=== PATIENT | female | born 1935 | race Caucasian/White ===

== ENCOUNTER → 2017-05-13 | Outpatient (CLI) | payer OTHER ==
[~2017-05-13] MED LIST: ACET-2158 GTB; ACET1TAB40 PO; AMLO-147 PO; ASPI-664 PO; ATOR10TA65; BENA1TAB3 PO; CARB200C5 PO; DOCU-144 PO; FER325 PO; IMO2 GTB; LEVO100T11 PO; METOPROLOL TARTRATE; MTF1000T PO
--- NOTE | 2017-05-13 20:40 | RADRPT ---
PROCEDURE: Right knee radiographs. CLINICAL INDICATION: Right knee pain. Postop. TECHNIQUE: Three views. Weight bearing. Frontal, lateral, and patellar view. COMPARISON: 10/03/2013. FINDINGS: There is no fracture or dislocation. The soft tissues are normal. 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 There is no lytic or blastic lesion. IMPRESSION: 1. Satisfactory postoperative appearance of the right knee. RPTAT: QQ .José Miguel Yousif MD, MD Date Time Electronically viewed and signed by .José Miguel Yousif MD, MD on 05/13/2017 20:40 .R/
--- NOTE | 2017-05-14 03:58 | HKNOTE ---
DATE OF SERVICE: 05/13/2017 CHIEF COMPLAINT: Left groin pain. HISTORY OF PRESENT ILLNESS: Ms. Burrows is an 81-year-old female complaining of pain in the left sophie in. The pain radiates to the left knee. She has difficulty ambulating. She uses a walker and a ca ne for ambulation. She states that the pain is constant. She denies any back pain. She denies any numbness or tingling. She has no other complaints. GAIT: Antalgic gait, reciprocal gait pattern. LEFT HIP EXAMINATION: 0 to 100 degrees of flexion, 40 degrees of external rotation, 10 degrees of i nternal rotation, 30 degrees of abduction, 20 degrees of adduction, positive Comfort's. Negative impi ngement test. Negative straight leg raise. No obligate external rotation. MOTOR STRENGTH: 5/5 hamstrings, quadriceps, tibialis anterior, gastrocsoleus. AP PELVIS X-RAYS: X-rays demonstrate degenerative changes of the left hip with [id number] arthrit ic changes medially. There is lateral joint space. There were no fractures or dislocations. IMPRESSION: An 81-year-old female with left hip osteoarthritis. PLAN: I discussed treatment options with Mrs. Burrows. She has had previous physical therapy, pain medication as well as assistive devices. She would like to think about a left total hip arthroplast y. She will call for an appointment if she decides to proceed with surgery. Dictated By: TAZ HERNANDEZ/DORIAN Conf#: [id number] DID#: [id number]
== END | disposition home or self-care (01) ==
LOC: HKI 14:18
PROVIDERS: ATTEND Orthopaedic Surgery Adult Reconstructive Orthopaedic Surgery
DX: M16.12 Unilateral primary osteoarthritis, left hip (principal)
CPT/HCPCS: G0463